=== PATIENT | female | born 1980 | race Two or more races ===

== ENCOUNTER 2024-12-20 13:23 | Outpatient (AMB) | payer MEDICAID, SELFPAY ==
--- NOTE | 2024-12-20 13:50 | PD.ORTHCLVIS ---
Vital signs 12/20/24 13:51 Height 1.8 m Height Method Stated Weight 116.602 kg Weight Measurement Method Standing Scale BMI 35.8 BP 117/80 Blood Pressure Source Automatic Cuff Blood Pressure Location Left Upper Arm Position Sitting Respiration 17 Pulse 67 Pulse Source Monitor Temp 98.3 F Temp Source Temporal Artery Scan Pulse Oximetry (%) 100 Oxygen Delivery Method Room Air Med/Allergies Allergies & Medications Allergies banana Allergy (Severe, Verified 12/20/24 13:52) Swelling of Lip/Tongue/Throat walnut Allergy (Severe, Verified 12/20/24 13:52) Swelling of Lip/Tongue/Throat codeine Adverse Reaction (Intermediate, Verified 12/20/24 13:52) Vomiting Medication Reconciliation norethindrone (contraceptive) 0.35 mg tablet (Elyssa-BE) 0.35 mg PO QDAY 08/22/19 [History Confirmed 12/20/24] acetaminophen 500 mg tablet (Acetaminophen Extra Strength) 500 mg PO QID PRN Pain 08/24/19 [History Confirmed 12/20/24] pseudoephedrine HCl 30 mg tablet (Sudafed) 30 mg PO Q6H PRN Allergy Symptoms 08/24/19 [History Confirmed 12/20/24] Exam Exam Patient is in no acute distress and is cooperative with the examination today. Breathing is nonlabored. In no respiratory distress. Bilateral extremities were evaluated and demonstrates sensation intact to light touch. Palpable pedal pulses are present. No significant edema is present. Bilateral hips were examined. The patient has no pain with log roll of the hips. Internal rotation to 30 degrees and external rotation to 30 degrees is painless. Negative FADIR. The left knee was examined. The left knee is in varus alignment. Range of motion from 0-115 degrees. Knee is stable to varus and valgus as well as AP translation with <5mm. Patient has a negative McMurrays. There is pain with patellofemoral compression and no crepitus noted. The knee is tender to palpation medially. The right knee was also examined. The right knee is in varus alignment. Range of motion from 0-120 degrees. Knee is stable to varus and valgus as well as AP translation with <5mm. Patient has a negative McMurrays. There is pain with patellofemoral compression and no crepitus noted. The knee is tender to palpation medially And anteriorly. Assessment and Plan Problem List (1) Bilateral knee pain: Status: Acute Plan: Patient is a pleasant 44-year-old female with patellofemoral arthritis with significant cartilage loss behind her kneecap according to the MRI. I would like to get weightbearing x-rays to better assess for arthritis. We will continue with conservative management. Also discussed weight loss in great detail. We will likely do injections at the next visit but we will go over her weightbearing x-rays as well. Office Procedures GNS Level of Care Nursing/Assessment Patient Status: Initial/New Patient Nursing Assessment/Reassesment: Medication Reconciliation, Update PMH in EMR and Vital Signs Coordination of Care: Complex Care and Chronic Disease 1-5, Education Complex Pt/Fam, Consent,records obtained, informed consent, Results/Orders obtained and Staff clarify orders New Patient Charge New Patient Point Assignment: [id number] New Patient Point Charge: MASTER COSMETOLOGIST Level 3 ([id number]) MA Intake Visit Data Collection New Patient or Established: Established Patient (seen at [facility] within 3 years) Reason for Visit:: RIGHT KNEE PAIN Seen by Clinical Staff ONLY (RN/MA): No Master Sonar Technician Required: No PCP or OBGYN visit in last 3 months: Yes Hx Now: No Do You Feel Safe at Home: Yes Authorities Contacted: N/A Questionairres Past Medical History Past Medical History Have you ever been diagnosed with any of the following: Neurological Problems Seizures: No Head Trauma: Yes (concussion x4 two as child, two as adult) Cardiology Problems Congestive Heart Failure: No Respiratory Problems Chronic Obstructive Pulmonary Disease (COPD): No Stomache/Intestinal Problems Gall Bladder Disease: Yes (removed 2000) Genital/Urinary Problems Renal Disease: No Musculoskeletal Problems Fractures: Yes (right arm as a child, no surgery) Endocrine Problems Diabetes Mellitus Type 1: No Diabetes Mellitus Type 2: No Other Problems Hospitalization: Yes ( x2) Blood Transfusions: No Anesthesia Reactions: No Organ Transplant: No Radiation Therapy: No MRSA: No VRSA: No Vancomycin-Resistant Enterococci: No Chicken Pox: Yes Cancer: No Subjective Visit Visit for: new patient and knee (RIGHT KNEE ) Immunization / Flu Flu Vaccine in the Last 12 Months: No Flu Vaccine Exclusion Criteria: Refused by Patient History of Present Illness Chief complaint: Bilateral knee pain Patient is a pleasant 44-year-old female with bilateral knee pain worse on the right. The left knee pain has started to act up recently. She is on naproxen. She has not had any injections or physical therapy. She reports the naproxen has helped somewhat. She is on Wegovy and has lost 70 pounds recently. The pain has improved somewhat since the weight loss. The pain is primarily behind the kneecap and in the front of her knee. She is a lot of pain with walking Personal History Red flag PMH: none Pain Pain level (0-10): 7 Pain duration: 2-3 YEARS- BURSITIS OF RIGHT KNEE Pain location: anterior Pain quality: aching, shocking and other (specify) (SWELLING ) Pain timing: night and increases with activity Associated signs & symptoms: weakness and stiffness Ambulatory data Ambulatory device: none Walking distance (minutes): 1 Treatments Number of previous injections: 0 Number of Physical Therapy sessions: 0 Improvement with NSAIDS: n/a Review of Systems Review of Systems: All systems negative unless otherwise noted in HPI.
[2024-12-20 13:51] VITALS: BP 117/80; PULSE 67; RESP 17; TEMP 36.8; O2SAT 100; BMI 35.8
--- NOTE | 2024-12-20 13:53 | XR_ITS ---
Examination: Bilateral knees 2 views Right lateral knee left lateral knee 2 views Bilateral axial knees single view TECHNIQUE: Bilateral AP knees standing single view, bilateral PA knees standing single view flexion Standing right lateral knee left lateral knee 2 views Bilateral axial knees single view total 5 views Date and time: December 20, 2024, 1401 hours INDICATIONS: Bilateral knee pain beginning 2 years ago. FINDINGS: Mild to moderate narrowing medial joint spaces Bilateral moderate osteoarthritis patellofemoral joints No fractures No patellar dislocation IMPRESSION: Mild to moderate narrowing medial joint spaces Moderate osteoarthritis patellofemoral joints
== END 2024-12-20 13:58 | disposition home or self-care (01) ==
LOC: HODSRG 13:23
PROVIDERS: PCP Family Medicine; Referring Provider Family Medicine; Supervising Provider Orthopaedic Surgery Adult Reconstructive Orthopaedic Surgery; Visit Provider Orthopaedic Surgery Adult Reconstructive Orthopaedic Surgery
DX: M25.561 Pain in right knee (principal); M25.562 Pain in left knee; M17.0 Bilateral primary osteoarthritis of knee
CPT/HCPCS: 73564; 99203; G0463

== ENCOUNTER 2025-01-18 13:44 | Outpatient (AMB) | payer MEDICAID, SELFPAY ==
[2025-01-18 14:07] VITALS: BP 119/81; PULSE 79; RESP 18; TEMP 36.6; O2SAT 96; BMI 35.8
--- NOTE | 2025-01-18 14:07 | ORTHONT_ITS ---
Vital signs 01/18/25 14:07 Height 1.8 m Height Method Stated Weight 116.176 kg Weight Measurement Method Standing Scale BMI 35.8 BP 119/81 Blood Pressure Source Automatic Cuff Blood Pressure Location Left Upper Arm Position Sitting Respiration 18 Pulse 79 Pulse Source Monitor Temp 97.9 F Temp Source Temporal Artery Scan Pulse Oximetry (%) 96 Oxygen Delivery Method Room Air Med/Allergies Allergies & Medications Allergies banana Allergy (Severe, Verified 01/18/25 14:08) Swelling of Lip/Tongue/Throat walnut Allergy (Severe, Verified 01/18/25 14:08) Swelling of Lip/Tongue/Throat codeine Adverse Reaction (Intermediate, Verified 01/18/25 14:08) Vomiting Medication Reconciliation norethindrone (contraceptive) 0.35 mg tablet (Elyssa-BE) 0.35 mg PO QDAY 08/22/19 [History Confirmed 01/18/25] acetaminophen 500 mg tablet (Acetaminophen Extra Strength) 500 mg PO QID PRN Pain 08/24/19 [History Confirmed 01/18/25] pseudoephedrine HCl 30 mg tablet (Sudafed) 30 mg PO Q6H PRN Allergy Symptoms 08/24/19 [History Confirmed 01/18/25] meloxicam 7.5 mg tablet 7.5 mg PO QDAY #45 tabs 01/18/25 [Rx] Exam Exam Patient is in no acute distress and is cooperative with the examination today. Breathing is nonlabored. In no respiratory distress. Bilateral extremities were evaluated and demonstrates sensation intact to light touch. Palpable pedal pulses are present. No significant edema is present. Bilateral hips were examined. The patient has no pain with log roll of the hips. Internal rotation to 30 degrees and external rotation to 30 degrees is painless. Negative FADIR. The left knee was examined. The left knee is in varus alignment. Range of motion from 0-115 degrees. Knee is stable to varus and valgus as well as AP transl ation with <5mm. Patient has a negative McMurrays. There is pain with patellofemoral compression and no crepitus noted. The knee is tender to palpation medially. The right knee was also examined. The right knee is in varus alignment. Range of motion from 0-120 degrees. Knee is stable to varus and valgus as well as AP translation with <5mm. Patient has a negative McMurrays. There is pain with patellofemoral compression and no crepitus noted. The knee is tender to palpation medially And anteriorly.\ X-rays demonstrate mild arthritis. joint space narrowing is minimal Assessment and Plan Problem List (1) Bilateral knee pain: Status: Acute Plan: Patient is a pleasant 44-year-old female with patellofemoral arthritis with significant cartilage loss behind her kneecap according to the MRI. I would like to get weightbearing x-rays to better assess for arthritis. We will continue with conservative management. Also discussed weight loss in great detail. Recommend knee cortisone injection as patient would like to proceed with conservative treatment at this time. The risks and benefits of the procedure were reviewed with the patient and patient gave verbal consent to continue with the procedure. Procedure: performed by Dr. Meredith Using sterile technique the left knee was thoroughly prepped with alcohol, and approximately 1 cc of Depo-Medrol 80mg/mL and 4 cc of 0.2% ropivacaine was injected without resistance into the medial tibial femoral joint space. The patient tolerated the procedure. Recommend knee cortisone injection as patient would like to proceed with conservative treatment at this time. The risks and benefits of the procedure were reviewed with the patient and patient gave verbal consent to continue with the procedure. Procedure: performed by Dr. Meredith Using sterile technique the Right knee was thoroughly prepped with alcohol, and approximately 1 cc of Depo-Medrol 80mg/mL and 4 cc of 0.2% ropivacaine was injected without resistance into the medial tibial femoral joint space. The patient tolerated the procedure. Office Procedures GNS Level of Care Nursing/Assessment Patient Status: Established Patient Nursing Assessment/Reassesment: Medication Reconciliation, Update PMH in EMR and Vital Signs Coordination of Care: Complex Care and Chronic Disease 1-5, Education Complex Pt/Fam, Consent,records obtained, informed consent, Results/Orders obtained and Staff clarify orders Established Patient Charge Established Patient Point Assignment: 95 Established Patient Point Charge: EP Level 3 (80-115) Surgical Proc/IM SQ injection Major Surgical Procedure: Yes (BILATERAL KNEE INJECTION) Medication Given Medication Given Medication Given: Yes Documented Dose Given: 1 Route: Infiitration Medication Given Medication Given Medication Given: Yes Documented Dose Given: 1 Route: Infiitration Medication Given Medication Given Medication Given: Yes Documented Dose Given: 4 Route: Infiitration Medication Given Medication Given Medication Given: Yes Documented Dose Given: 4 Route: Infiitration Office Meds methylprednisolone acetate 80 mg/mL suspension for injection Performing Provider: Raymon Meredith MD Performing Location: [facility] Administered by: Raymon Meredith MD on 01/18/25 14:49 Dose Route Admin Location Dispensed Lot Number Expiration Date [facility] Complaint Specialist 80 mg intra-articular 1 mL [id number] 07/26/26 2613-3603-34 PH ARMACIA-UPJHN methylprednisolone acetate 80 mg/mL suspension for injection Performing Provider: Raymon Meredith MD Performing Location: [facility] Administered by: Raymon Meredith MD on 01/18/25 14:49 Dose Route Admin Location Dispensed Lot Number Expiration Date [facility] Complaint Specialist 80 mg intra-articular 1 mL [id number] 07/26/26 8251-7805-27 PH ARMACIA-UPJHN ropivacaine (PF) 2 mg/mL (0.2 %) injection solution Performing Provider: Raymon Meredith MD Performing Location: [facility] Administered by: Raymon Meredith MD on 01/18/25 14:49 Dose Route Admin Location Dispensed Lot Number Expiration Date [facility] Complaint Specialist 20 mL Infiltration 20 mL [id number] 05/26/26 65808-282-75 DEUCE NIUS KABI ropivacaine (PF) 2 mg/mL (0.2 %) injection solution Performing Provider: Raymon Meredith MD Performing Location: [facility] Administered by: Raymon Meredith MD on 01/18/25 14:49 Dose Route Admin Location Dispensed Lot Number Expiration Date [facility] Complaint Specialist 20 mL Infiltration 20 mL [id number] 05/26/26 54454-117-08 DEUCE NIUS KABI MA Intake Visit Data Collection New Patient or Established: Established Patient (seen at [facility] within 3 years) Reason for Visit:: RIGHT KNEE PAIN /XRAY RESULTS Seen by Clinical Staff ONLY (RN/MA): No Investigator Narcotics Required: No PCP or OBGYN visit in last 3 months: Yes Hx Now: No Do You Feel Safe at Home: Yes Authorities Contacted: N/A Questionairres Past Medical History Past Medical History Have you ever been diagnosed with any of the following: Neurological Problems Seizures: No Head Trauma: Yes (concussion x4 two as child, two as adult) Cardiology Problems Congestive Heart Failure: No Respiratory Problems Chronic Obstructive Pulmonary Disease (COPD): No Stomache/Intestinal Problems Gall Bladder Disease: Yes (removed 2000) Genital/Urinary Problems Renal Disease: No Musculoskeletal Problems Fractures: Yes (right arm as a child, no surgery) Endocrine Problems Diabetes Mellitus Type 1: No Diabetes Mellitus Type 2: No Other Problems Hospitalization: Yes ( x2) Blood Transfusions: No Anesthesia Reactions: No Organ Transplant: No Radiation Therapy: No MRSA: No VRSA: No Vancomycin-Resistant Enterococci: No Chicken Pox: Yes Cancer: No Subjective Visit Visit for: follow up visit, knee (RIGHT KNEE ) and x-rays Immunization / Flu Flu Vaccine in the Last 12 Months: No Flu Vaccine Exclusion Criteria: Refused by Patient History of Present Illness Chief complaint: Bilateral knee pain Patient is a pleasant 44-year-old female with bilateral knee pain worse on the right. The left knee pain has started to act up recently. She is on naproxen. She has not had any injections or physical therapy. She reports the naproxen has helped somewhat. She is on Wegovy and has lost 70 pounds recently. The pain has improved somewhat since the weight loss. The pain is primarily behind the kneecap and in the front of her knee. She is a lot of pain with walking Personal History Red flag PMH: none Pain Pain level (0-10): 7 Pain duration: 2-3 YEARS- BURSITIS OF RIGHT KNEE Pain location: anterior Pain quality: aching, shocking and other (specify) (SWELLING ) Pain timing: night and increases with activity Associated signs & symptoms: weakness and stiffness Ambulatory data Ambulatory device: none Walking distance (minutes): 1 Treatments Number of previous injections: 0 Number of Physical Therapy sessions: 0 Improvement with NSAIDS: n/a Review of Systems Review of Systems: All systems negative unless otherwise noted in HPI.
== END 2025-01-18 14:25 | disposition home or self-care (01) ==
LOC: HODSRG 13:44
PROVIDERS: PCP Family Medicine; Referring Provider Family Medicine; Supervising Provider Orthopaedic Surgery Adult Reconstructive Orthopaedic Surgery; Visit Provider Orthopaedic Surgery Adult Reconstructive Orthopaedic Surgery
DX: M25.562 Pain in left knee (principal); M25.561 Pain in right knee; M17.9 Osteoarthritis of knee, unspecified
CPT/HCPCS: 20610; 99213; J1010; J2795; G0463

== ENCOUNTER 2025-04-23 13:33 | Outpatient (AMB) | payer MEDICAID, SELFPAY ==
--- NOTE | 2025-04-23 14:03 | ORTHONT_ITS ---
Vital signs 04/23/25 14:04 Height 1.8 m Height Method Measured Weight 115.921 kg Weight Measurement Method Standing Scale BMI 35.7 BP 121/84 Blood Pressure Source Automatic Cuff Blood Pressure Location Left Upper Arm Position Sitting Respiration 20 Pulse 72 Pulse Source Monitor Temp 98.0 F Temp Source Temporal Artery Scan Pulse Oximetry (%) 97 Oxygen Delivery Method Room Air Med/Allergies Allergies & Medications Allergies banana Allergy (Severe, Verified 04/23/25 14:05) Swelling of Lip/Tongue/Throat walnut Allergy (Severe, Verified 04/23/25 14:05) Swelling of Lip/Tongue/Throat codeine Adverse Reaction (Intermediate, Verified 04/23/25 14:05) Vomiting Medication Reconciliation norethindrone (contraceptive) 0.35 mg tablet (Elyssa-BE) 0.35 mg PO QDAY 08/22/19 [History Confirmed 04/23/25] acetaminophen 500 mg tablet (Acetaminophen Extra Strength) 500 mg PO QID PRN Pain 08/24/19 [History Confirmed 04/23/25] pseudoephedrine HCl 30 mg tablet (Sudafed) 30 mg PO Q6H PRN Allergy Symptoms 08/24/19 [History Confirmed 04/23/25] meloxicam 7.5 mg tablet 7.5 mg PO QDAY #45 tabs 01/18/25 [Rx Confirmed 04/23/25] Exam Exam Patient is in no acute distress and is cooperative with the examination today. Breathing is nonlabored. In no respiratory distress. Bilateral extremities were evaluated and demonstrates sensation intact to light touch. Palpable pedal pulses are present. No significant edema is present. Bilateral hips were examined. The patient has no pain with log roll of the hips. Internal rotation to 30 degrees and external rotation to 30 degrees is painless. Negative FADIR. The left knee was examined. The left knee is in varus alignment. Range of motion from 0-115 degrees. Knee is stable to varus and valgus as well as AP translation with <5mm. Patient has a negative McMurrays. There is pain with patellofemoral compression and no crepitus noted. The knee is tender to palpation medially. The right knee was also examined. The right knee is in varus alignment. Range of motion from 0-120 degrees. Knee is stable to varus and valgus as well as AP translation with <5mm. Patient has a negative McMurrays. There is pain with patellofemoral compression and no crepitus noted. The knee is tender to palpation medially And anteriorly.\ X-rays demonstrate mild arthritis. joint space narrowing is minimal Assessment and Plan Problem List (1) Bilateral knee pain: Status: Acute Plan: Patient is a pleasant 44-year-old female with patellofemoral arthritis with significant cartilage loss behind her kneecap according to the MRI. I would like to get weightbearing x-rays to better assess for arthritis. We will continue with conservative management. Also discussed weight loss in great detail. Recommend knee cortisone injection as patient would like to proceed with conservative treatment at this time. The risks and benefits of the procedure were reviewed with the patient and patient gave verbal consent to continue with the procedure. Procedure: performed by Dr. Meredith Using sterile technique the left knee was thoroughly prepped with alcohol, and approximately 1 cc of Depo-Medrol 80mg/mL and 4 cc of 0.2% ropivacaine was injected without resistance into the medial tibial femoral joint space. The patient tolerated the procedure. Recommend knee cortisone injection as patient would like to proceed with conservative treatment at this time. The risks and benefits of the procedure were reviewed with the patient and patient gave verbal consent to continue with the procedure. Procedure: performed by Dr. Meredith Using sterile technique the Right knee was thoroughly prepped with alcohol, and approximately 1 cc of Depo-Medrol 80mg/mL and 4 cc of 0.2% ropivacaine was injected without resistance into the medial tibial femoral joint space. The patient tolerated the procedure. Office Procedures GNS Level of Care Nursing/Assessment Patient Status: Established Patient Nursing Assessment/Reassesment: Medication Reconciliation, Update PMH in EMR and Vital Signs Coordination of Care: Complex Care and Chronic Disease 1-5, Education Complex Pt/Fam, Consent,records obtained, informed consent, Results/Orders obtained and Staff clarify orders Established Patient Charge Established Patient Point Assignment: 95 Established Patient Point Charge: EP Level 3 (80-115) Surgical Proc/IM SQ injection Minor Surgical Procedure: Yes (KNEE INJECTION ) Medication Given Medication Given Medication Given: Yes Documented Dose Given: 2 Route: Infiitration Medication Given Medication Given Medication Given: Yes Documented Dose Given: 8 Route: Infiitration Office Meds methylprednisolone acetate 80 mg/mL suspension for injection Performing Provider: Raymon Meredith MD Performing Location: [facility] Administered by: Raymon Meredith MD on 04/23/25 14:36 Dose Route Admin Location Dispensed Lot Number Expiration Date Pack age [facility] Rn Documentation Specialist 160 mg intra-articular KNEE 2 mL [id number] 12/24/26 [address]-8 7 [id number] [employer] ropivacaine (PF) 2 mg/mL (0.2 %) injection solution Performing Provider: Raymon Meredith MD Performing Location: [facility] Administered by: Raymon Meredith MD on 04/23/25 14:36 Dose Route Admin Location Dispensed Lot Number Expiration Date Pack age [facility] Rn Documentation Specialist 40 mL Infiltration KNEE 40 mL [id number] 07/27/27 01235-554-96 [id number] [facility] Intake Visit Data Collection New Patient or Established: Established Patient (seen at [facility] within 3 years) Reason for Visit:: 3 MONTH F/U BILATERAL KNEE INJECTION Seen by Clinical Staff ONLY (RN/MA): No Charging Car Operator Required: No PCP or OBGYN visit in last 3 months: Yes Hx Now: No Do You Feel Safe at Home: Yes Authorities Contacted: N/A Questionairres Past Medical History Past Medical History Have you ever been diagnosed with any of the following: Neurological Problems Seizures: No Head Trauma: Yes (concussion x4 two as child, two as adult) Cardiology Problems Congestive Heart Failure: No Respiratory Problems Chronic Obstructive Pulmonary Disease (COPD): No Stomache/Intestinal Problems Gall Bladder Disease: Yes (removed 2000) Genital/Urinary Problems Renal Disease: No Musculoskeletal Problems Fractures: Yes (right arm as a child, no surgery) Endocrine Problems Diabetes Mellitus Type 1: No Diabetes Mellitus Type 2: No Other Problems Hospitalization: Yes ( x2) Blood Transfusions: No Anesthesia Reactions: No Organ Transplant: No Radiation Therapy: No MRSA: No VRSA: No Vancomycin-Resistant Enterococci: No Chicken Pox: Yes Cancer: No Subjective Visit Visit for: follow up visit and knee Immunization / Flu Flu Vaccine in the Last 12 Months: No Flu Vaccine Exclusion Criteria: Refused by Patient History of Present Illness Chief complaint: Bilateral knee pain Patient is a pleasant 44-year-old female with bilateral knee pain worse on the right. The left knee pain has started to act up recently. She is on naproxen. She has not had any injections or physical therapy. She reports the naproxen has helped somewhat. She is on Wegovy and has lost 70 pounds recently. The pain has improved somewhat since the weight loss. The pain is primarily behind the kneecap and in the front of her knee. She is a lot of pain with walking Personal History Red flag PMH: none Pain Pain level (0-10): 7 Pain duration: 2-3 YEARS- BURSITIS OF RIGHT KNEE Pain location: anterior Pain quality: aching, shocking and other (specify) (SWELLING ) Pain timing: night and increases with activity Associated signs & symptoms: weakness and stiffness Ambulatory data Ambulatory device: none Walking distance (minutes): 1 Treatments Number of previous injections: 0 Number of Physical Therapy sessions: 0 Improvement with NSAIDS: n/a Review of Systems Review of Systems: All systems negative unless otherwise noted in HPI.
[2025-04-23 14:04] VITALS: BP 121/84; PULSE 72; RESP 20; TEMP 36.7; O2SAT 97; BMI 35.7
== END 2025-04-23 14:19 | disposition home or self-care (01) ==
LOC: HODSRG 13:33
PROVIDERS: PCP Family Medicine; Referring Provider Family Medicine; Supervising Provider Orthopaedic Surgery Adult Reconstructive Orthopaedic Surgery; Visit Provider Orthopaedic Surgery Adult Reconstructive Orthopaedic Surgery
DX: M25.562 Pain in left knee (principal); M25.561 Pain in right knee; M17.9 Osteoarthritis of knee, unspecified
CPT/HCPCS: 20610; 99213; J1010; J2795; G0463